=== PATIENT | female | born 1935 | race Caucasian/White ===

== ENCOUNTER 2016-09-22 22:35 | Emergency (ER) | payer OTHER ==
[2016-09-22 23:00] VITALS: TEMP 98.9; BMI 25.6
--- NOTE | 2016-09-23 00:33 | PDOC ---
*Physical Exam - Vital Signs Last Vital Signs Temp Pulse Resp BP Pulse Ox 98.9 F 90 18 189/96 95 09/22/16 22:44 09/22/16 22:44 09/22/16 22:44 09/22/16 22:44 09/22/16 22:44 Medical Decision Making - Medical Decision Making 09/23/16 00:33 agree with care from INTERNATIONAL STUDENT ADVISOR Jerez
[2016-09-23 00:53] LABS: BASOPHIL 0.2 % (0-2.0); EOSINOPHIL 1.1 % (0-4.5); MCH 25.5 pg (25.7-33.7); MCHC 31.8 g/dl (32.0-36.0); MEAN CELL VOLUME 80.1 fl (80-96); MEAN PLT VOLUME 8.3 fl (7.5-11.1); PLATELET COUNT 221 K/MM3 (134-434); RDW 15.2 % (11.6-15.6); WHITE BLOOD COUNT 7.9 K/mm3 (4.0-10.0)
--- NOTE | 2016-09-23 01:03 | PDOC ---
History of Present Illness - General Chief Complaint: Back Pain Stated Complaint: PAIN Time Seen by Provider: 09/22/16 23:49 - History of Present Illness Initial Comments: 09/23/16 01:03 CHIEF COMPLAINT: back/leg pain HISTORY OF PRESENT ILLNESS: 81 yo F with hx of HTN, HLD, GERD, hypothyroidism presents to ED with worsening low back pain and R leg pain x 2 weeks. Patient states that she has been seen by an orthopedist Dr. Rojas and was prescribed Naproxen. She did not take Naproxen today; however she did take 2 Advil twice, last dose at 3:30 pm. She had an MRI done at [facility] but is unsure of the results. She denies any loss of sensation to her legs or any loss of bowel or bladder function. No recent travel or sick contacts. PAST MEDICAL HISTORY: as per HPI FAMILY HISTORY: Denies SOCIAL HISTORY: Denies tobacco, alcohol, illicit drug use. SURGICAL HISTORY: Denies ALLERGIES: No known drug allergies REVIEW OF SYSTEMS General/Constitutional: Denies fever or chills. Denies weakness, weight change. HEENT: Denies change in vision. Denies ear pain or discharge. Denies sore throat. Cardiovascular: Denies chest pain or shortness of breath. Respiratory: Denies cough, wheezing, or hemoptysis. Gastrointestinal: Denies nausea, vomiting, diarrhea or constipation. Denies rectal bleeding. Genitourinary: Denies dysuria, frequency, or change in urination. Musculoskeletal: Back pain radiating down R leg x 2 weeks. Skin and breasts: Denies rash or easy bruising. Neurologic: Denies headache, vertigo, loss of consciousness, or loss of sensation. PHYSICAL EXAM General Appearance: Well-appearing, appropriately dressed. No apparent distress. HEENT: EOMI, PERRLA. Respiratory/Chest: Lungs CTAB. Cardiovascular: RRR. S1, S2. Vascular Pulses: Dorsalis-Pedis (R): 2+, Dorsalis-Pedis (L): 2+ Gastrointestinal/Abdominal: Normal bowel sounds. Abdomen soft, non-distended. No tenderness or rebound tenderness. No organomegaly, pulsatile mass, guarding , hernia, hepatomegaly, splenomegaly. Musculoskeletal/Extremities: Positive straight leg test to R leg. Sensory discrimination intact to LE b/l. Normal inspection. FROM of all other extremities, normal capillary refill. Pelvis Stable. No CVA tenderness. No tenderness to extremities, pedal edema, swelling, erythema or deformity. Integumentary: Appropriate color, dry, warm. 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 Fully oriented, alert. Appropriate mood/affect. Motor strength 5/5. No appreciable EOM palsy, facial droop or sensory deficit. 09/23/16 01:26 Past History - Past Medical History Allergies/Adverse Reactions: Allergies Allergy/AdvReac Type Severity Reaction Status Date / Time No Known Allergies Allergy Verified 09/22/16 22:44 Home Medications: Ambulatory Orders Atorvastatin Ca [Lipitor -] 20 mg PO HS 02/01/13 BUPROPion HCL "SR" [Wellbutrin Sr -] 300 mg PO DAILY 02/01/13 Esomeprazole Mag Trihydrate [Nexium] 40 mg PO DAILY 02/01/13 Folic Acid - 1 mg PO DAILY 02/01/13 Levothyroxine [Synthroid -] 175 mcg PO DAILY 02/01/13 Losartan Potassium 50 mg PO BID 02/01/13 Sertraline HCl [Zoloft 20mg/mL Oral Solution -] 150 mg PO DAILY 02/01/13 Verapamil HCl [Verapamil ER] 240 mg PO BID 02/01/13 Naproxen [Naprosyn -] 500 mg PO BID 09/22/16 Oxycodone HCl/Acetaminophen [Percocet 5-325 mg Tablet] 1 tab PO Q6H PRN #12 tablet MDD 4 09/23/16 GI Disorders: Yes (gerd) HTN: Yes Thyroid Disease: Yes (hypo) - Psycho/Social/Smoking Cessation Hx Anxiety: No Suicidal Ideation: No Smoking Status: No Smoking History: Never smoked Have you smoked in the past 12 months: No Number of Cigarettes Smoked Daily: 0 Information on smoking cessation initiated: No Hx Alcohol Use: No Drug/Substance Use Hx: No *Physical Exam - Vital Signs Last Vital Signs Temp Pulse Resp BP Pulse Ox 98.9 F 90 18 189/96 95 09/22/16 22:44 09/22/16 22:44 09/22/16 22:44 09/22/16 22:44 09/22/16 22:44 ED Treatment Course - LABORATORY CBC & Chemistry Diagram: 09/23/16 00:45 09/23/16 00:45 - ADDITIONAL ORDERS Additional order review: 09/23/16 00:45 RBC 3.66 MCV 80.1 MCHC 31.8 L RDW 15.2 MPV 8.3 Neutrophils % 77.0 Lymphocytes % 12.5 Monocytes % 9.2 Eosinophils % 1.1 Basophils % 0.2 Medical Decision Making - Medical Decision Making 09/23/16 03:41 81 yo F with hx of HTN, HLD, GERD, hypothyroidism presents to ED with worsening low back pain and R leg pain x 2 weeks. Patient states that she has been seen by an orthopedist Dr. Rojas and was prescribed Naproxen. -CBC, CMP -30 mg Toradol IVPUSH Patient reassessed; at this time she states her pain is not much improved and she does not feel as if she is able to walk due to her pain. -0.5 mg morphine IVPUSH Will admit to obs for intractable back pain requiring IV abx. *DC/Admit/Observation/Transfer Diagnosis at time of Disposition: Back pain - Discharge Dispostion Disposition: HOME Condition at time of disposition: Stable Admit: No - Prescriptions Prescriptions: Oxycodone HCl/Acetaminophen [Percocet 5-325 mg Tablet] 1 tab PO Q6H PRN #12 tablet MDD 4 PRN Reason: Pain - Referrals Referrals: Gildardo Rios [Primary Care Provider] - Ambrosio Dumont MD [Non Staff, Medical] - - Patient Instructions Printed Discharge Instructions: DI for Low Back Pain Additional Instructions: Please take medication as prescribed and follow up with Dr. Dumont for further evaluation of your back pain and for pain management. If you experience any loss of sensation to your legs, loss of bowel or bladder function, inability to walk, or any new or worsening symptoms, please return to the ER.
[2016-09-23 01:23] LABS: ANION GAP 11 (8-16); CALCIUM 8.7 mg/dL (8.5-10.1); CO2 23 mmol/L (21-32); CREATININE 0.8 mg/dL (0.55-1.02); GLUCOSE,RANDOM 106 mg/dL (74-106)
[2016-09-23] MEDS ORDERED: KETOROLAC TROMETHAMINE 30 MG/1 ML VIAL IVPUSH ONE (01:26)
[2016-09-23] MEDS ORDERED: KETOROLAC TROMETHAMINE 30 MG/1 ML VIAL ONE (01:30)
[2016-09-23] MEDS ORDERED: morphine CARPU-JECT 2 MG/1 ML DISP.SYRIN IVPUSH ONE (03:41)
[2016-09-23 06:46] VITALS: BP 170/94; PULSE 92
--- NOTE | 2016-09-23 14:18 | EKG ---
Test Reason : Blood Pressure : / mmHG Vent. Rate : 073 BPM Atrial Rate : 073 BPM P-R Int : 148 ms QRS Dur : 086 ms QT Int : 390 ms P-R-T Axes : 041 052 051 degrees QTc Int : 429 ms NORMAL SINUS RHYTHM NONSPECIFIC ST AND T WAVE ABNORMALITY NO PREVIOUS ECGS AVAILABLE Confirmed by ISRAEL MAYEN MD ([id number]) on 09/23/2016 2:18:01 PM Referred By: Confirmed By:ISRAEL MAYEN MD
== END 2016-09-23 07:10 | disposition home or self-care (01) ==
LOC: JER 22:35
PROC: 3E0333Z Introduction of Anti-inflammatory into Peripheral Vein, Percutaneous Approach (ICD-10-PCS; principal; 2016-09-22)
DX: M54.5 Low back pain (principal); I10 Essential (primary) hypertension; E78.00 Pure hypercholesterolemia, unspecified; K21.9 Gastro-esophageal reflux disease without esophagitis; E03.9 Hypothyroidism, unspecified
CPT/HCPCS: 36415; 71010-TC; 80048; 85025; 93005; 93010; 99282-25

== ENCOUNTER 2019-03-17 09:57 | Emergency (ER) | payer OTHER ==
[2019-03-17 10:23] VITALS: BMI 32.3
--- NOTE | 2019-03-17 10:28 | PDOC ---
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 Pt states she slipped on the stairs, tumbling down 5 stairs and landing at the base. Pt had no LOC, confusion, or vomiting. Pt was able to stand up with assistance at that time, but was unable to ambulate due to pain in her knees. Pt currently complains of pain in her L hip and her R knee. Pt denies any recent fevers/chills, headache, vision changes, syncope, chest pain, palpitations, SOB, nausea/vomiting, abdominal pain, urinary symptoms, diarrhea/ constipation, or leg swelling from baseline. Allergies: NKDA PCP: Dr. Magana Knees: Dr. Butts Hip: Dr. Mckenzie Social: Pt denies any cigarette, alcohol, or drug use. Pt denies any recent travel or sick contacts. Surgical: orthopedic, see above Family: no relevant history. 03/17/19 11:33 03/17/19 11:39 Past History - Travel Traveled outside of the country in the last 30 days: No Close contact w/someone who was outside of country & ill: No - Past Medical History Allergies/Adverse Reactions: Allergies Allergy/AdvReac Type Severity Reaction Status Date / Time No Known Allergies Allergy Verified 03/17/19 10:14 Home Medications: Ambulatory Orders Atorvastatin Ca [Lipitor -] 20 mg PO HS 02/01/13 Folic Acid - 1 mg PO DAILY 02/01/13 Levothyroxine [Synthroid -] 100 mcg PO ASDIR 02/01/13 Verapamil HCl [Verapamil ER] 240 mg PO DAILY 02/01/13 Bupropion HCl [Bupropion HCl Sr] 150 mg PO DAILY 03/17/19 Losartan/Hydrochlorothiazide [Losartan-Hctz 100-25 mg Tab] 1 each PO BID Sertraline HCl [Zoloft] 150 mg PO DAILY 03/17/19 COPD: No GI Disorders: Yes (gerd) HTN: Yes Hypercholesterolemia: Yes Thyroid Disease: Yes (hypo) - Psycho Social/Smoking Cessation Hx Smoking Status: No Smoking History: Never smoked Have you smoked in the past 12 months: No Number of Cigarettes Smoked Daily: 0 Hx Alcohol Use: No Drug/Substance Use Hx: No Trauma Specific PMHX - Complaint Specific PMHX Arthritis: Yes Back Injury: No Neck Injury: No Hx Sacro Iliac Joint Dysfunction: No Other History: b/l knee, L hip replacement Review of Systems - Review of Systems Able to Perform ROS?: Yes Is the patient limited [place]ish proficient: No Constitutional: Yes: Weight Stable. No: Chills, Diaphoresis, Fever, Loss of Appetite, Malaise, Weakness HEENTM: No: Recent change in vision, Nose Congestion, Throat Pain, Throat Swelling, Difficulty Swallowing Respiratory: No: Cough, Orthopnea, Shortness of Breath Cardiac (ROS): No: Chest Pain, Edema, Irregular Heart Rate, Lightheadedness, Palpitations, Syncope, Chest Tightness ABD/GI: No: Constipated, Diarrhea, Nausea, Poor Appetite, Poor Fluid Intake, Vomiting, Abdominal cramping : No: Burning, Dysuria, Frequency, Flank Pain, Pain, Urgency Musculoskeletal: Yes: See HPI, Joint Pain. No: Back Pain, Joint Swelling, Muscle Pain, Muscle Weakness, Neck Pain Integumentary: No: Bruising, Erythema, Rash Neurological: No: Headache, Numbness, Paresthesia, Weakness, Unsteady Gait, Ataxia, Dizziness Psychiatric: No: Sleep Pattern Change, Change in Appetite Endocrine: No: Increased Urine, Change in Weight Hematologic/Lymphatic: No: Anemia, Blood Clots, Easy Bleeding, Easy Bruising All Other Systems: Reviewed and Negative *Physical Exam - Vital Signs Last Vital Signs Temp Pulse Resp BP Pulse Ox 97.9 F 89 16 161/78 96 03/17/19 10:00 03/17/19 10:00 03/17/19 10:00 03/17/19 10:00 03/17/19 10:00 - Physical Exam Vitals stable, pt afebrile. Pt in NAD when lying down. Obese body habitus. Pt alert and oriented x3. open cut examiner generally intact, muscular strength and sensation intact. No midline spinal tenderness, step-offs, or crepitus. +mild TTP over L hip, ROM of L hip and knee intact. R medial knee with TTP, tenderness induced with valgus stress. Knee stability intact, anterior and posterior drawer negative. Head normocephalic, atraumatic. Eyes PERRLA, EOMI. Oropharynx without erythema or exudates, no LAD b/l. No nasal congestion. Hearing intact. Clear heart sounds, S1/S2, no JVD, b/l pedal edema, or heart murmur. Clear lung sounds, no respiratory distress, wheezes, crackles, or accessory muscle use. No abdominal or CVA tenderness to palpation, no rebound, no guarding. Abdomen soft, non-distended, and with normoactive bowel sounds. Skin without jaundice or rash. 03/17/19 12:24 03/17/19 13:11 ED Treatment Course - LABORATORY CBC & Chemistry Diagram: 03/17/19 11:56 03/17/19 11:13 Medical Decision Making - Medical Decision Making Pt was seen at bedside, also will be seen by attending Dr. Phillips. Pt presenting with complaints of L hip and R knee pain s/p fall last night. Will evaluate with x-rays, as well as CT head and c-spine to look for fractures. Pt had no precipitating factors prior to falling. Provided 1 g ofirmev and lidocaine patch for improvement of pain. Will continue to reassess pt and monitor for symptomatic improvement. ECG: NSR, intervals WNL (HR 85, TX 162, QRs 86, QTc 464). No TWIs or significant ST segment changes. No changes from prior ECG (09/23/2016). 03/17/19 13:19 CBC and CMP WNL CT head and C-spine without acute pathology. 03/17/19 13:21 Knee and hip x-rays without acute pathology Pt placed in knee immobilizer and able to bear weight and ambulate with assistance. Pts son will be able to accompany her home and help inside the house. Pt advised to stay away from stairs unless she has someone to assist her. He will call her orthopedic physician (Dr. Beard) tomorrow morning to schedule an appointment [facility] for f/u and possible MRI. Strict return precautions and instructions for supportive care measures at home were given to pt with understanding. 03/17/19 15:05 Discharge - Discharge Information Problems reviewed: Yes Clinical Impression/Diagnosis: Right knee pain Qualifiers: Chronicity: acute Qualified Code(s): M25.561 - Pain in right knee Fall Qualifiers: Encounter type: initial encounter Qualified Code(s): W19.XXXA - Unspecified fall, initial encounter Condition: Improved Disposition: HOME - Admission No - Follow up/Referral Referrals: Kamla Meehan [Primary Care Provider] - - Patient Discharge Instructions Patient Printed Discharge Instructions: DI for Knee Pain Additional Instructions: You were seen in the ER today for knee and hip pain after a fall. The results of your labs and imaging today were normal. Please follow-up with your primary care doctor and orthopedic doctor within 1-2 days to discuss your visit and make sure your symptoms have improved. It is important that you see your orthopedic doctor, to check on the ligaments in your knee, possibly with an MRI. Please return to the ER if you have any worsening pain, difficulty ambulating, development of fevers or chills, loss of consciousness, inability to tolerate food or fluids, or any other concerns. You can take tylenol every 6 hours as needed for pain. Please elevate and ice the right leg for swelling. - Post Discharge Activity
--- NOTE | 2019-03-17 10:31 | PDOC ---
Attending Attestation - Resident Resident Name: Deepti Galvez - HPI HPI: 03/17/19 13:06 pt presents to the ED complaining of severe pain in her entire R leg after mechanical trip and fall yesterday. Patient denies LOC, denies chest or abdominal pain. She was able to ambulate after the fall, but was unable to walk when she woke up this morning. - Physicial Exam PE: 03/17/19 13:07 Agree with resident exam. Patient is alert and oriented and in no acute distress. Abdomen is soft, non tender, non distended without guarding or rebound. RLE: No deformity or tenderness, no ecchymosis, severely pain limited ROM - Medical Decision Making 03/17/19 13:15 Pt presents to the ED complaining of RLE and L hip pain after mechanical fall. Will check CT head and C spine to rule out intracranial or cervical spinal injury. Will check xrays of the R knee and L hip to rule out fracture. Will give pain control. Will consider admission if patient is unable to ambulate.
[2019-03-17] MEDS ORDERED: ACETAMINOPHEN 325 MG TABLET (FP) PO ONE (10:53)
[2019-03-17] MEDS ORDERED: LIDOCAINE 5% TOPICAL PATCH TP ONE (10:53)
[2019-03-17] MEDS ORDERED: ACETAMINOPHEN 325 MG TABLET (FP) ONE (10:56)
[2019-03-17] MEDS ORDERED: LIDOCAINE 5% TOPICAL PATCH ONE (10:56)
[2019-03-17] MEDS ORDERED: ACETAMINOPHEN 1000 MG/100 ML VIAL (NON FORMULARY) IVPB ONE (11:11)
[2019-03-17] MEDS ORDERED: ACETAMINOPHEN INJECTION 100 ML IVPB ONE (11:17)
[2019-03-17 12:07] LABS: BASO % 0.7 % (0-2.0); EOS % 0.9 % (0-4.5); HEMATOCRIT 40.8 % (32.4-45.2); HEMOGLOBIN 13.6 GM/dL (10.7-15.3); LYMPH % 16.4 % (8-40); MCH 30.2 pg (25.7-33.7); MCHC 33.3 g/dl (32.0-36.0); MEAN CELL VOLUME 90.5 fl (80-96); MEAN PLT VOLUME 8.4 fl (7.5-11.1); MONO % 8.1 % (3.8-10.2); NEUT % 73.9 % (42.8-82.8); PLATELET COUNT 243 K/MM3 (134-434); RBC 4.51 M/mm3 (3.60-5.2); RDW 13.2 % (11.6-15.6); WHITE BLOOD COUNT 8.9 K/mm3 (4.0-10.0)
[2019-03-17 12:43] LABS: ALBUMIN 3.8 g/dl (3.4-5.0); BILIRUBIN,TOTAL 0.7 mg/dL (0.2-1); BLOOD UREA NITROGEN 17.8 mg/dL (7-18); CALCIUM 9.1 mg/dL (8.5-10.1); CREATININE 0.7 mg/dL (0.55-1.3); POTASSIUM 3.9 mmol/L (3.5-5.1); TOT PROT 6.9 g/dl (6.4-8.2)
[2019-03-17 16:27] VITALS: BP 133/92; PULSE 85; TEMP 97.8
[2019-03-17] MEDS ORDERED: LIDOCAINE PATCH REMOVAL MC SCH (22:00)
--- NOTE | 2019-03-18 00:54 | EKG ---
Test Reason : Blood Pressure : / mmHG Vent. Rate : 085 BPM Atrial Rate : 085 BPM P-R Int : 162 ms QRS Dur : 086 ms QT Int : 390 ms P-R-T Axes : 047 041 039 degrees QTc Int : 464 ms NORMAL SINUS RHYTHM NORMAL ECG WHEN COMPARED WITH ECG OF 23-SEP-2016 06:25, NO SIGNIFICANT CHANGE WAS FOUND Confirmed by DEE RILEY MD ([id number]) on 03/18/2019 12:53:27 AM Referred By: Confirmed By:DEE RILEY MD
== END 2019-03-17 16:20 | disposition home or self-care (01) ==
LOC: JER 09:57
PROC: 3E033GC Introduction of Other Therapeutic Substance into Peripheral Vein, Percutaneous Approach (ICD-10-PCS; principal; 2019-03-17)
DX: M25.561 Pain in right knee (principal); W18.39XA Other fall on same level, initial encounter; Y93.89 Activity, other specified; Y92.89 Other specified places as the place of occurrence of the external cause; I10 Essential (primary) hypertension; K21.9 Gastro-esophageal reflux disease without esophagitis; E03.9 Hypothyroidism, unspecified; E78.00 Pure hypercholesterolemia, unspecified
CPT/HCPCS: 36415; 70450-TC; 72125-TC; 73523-TC-FY; 73562-TC-RT-FY; 80053; 85025; 93005; 93010; 99282-25; J0131